=== PATIENT | male | born 1990 | race American Indian/Alaskan Native ===

== ENCOUNTER 2021-11-10 10:45 | Emergency (ER) | payer MEDICARE ==
--- NOTE | 2021-11-10 12:45 | Emergency Department Report ---
ED General Adult HPI - General Chief complaint: Dyspnea/Respdistress Stated complaint: FEELING WARM/HEAD PAIN/SCAR Time Seen by Provider: 11/10/21 12:30 Source: patient Mode of arrival: Ambulatory Limitations: No Limitations - History of Present Illness Initial comments: 30-year-old morbid obese -[place] male presents to the emergency room complaining of a headache for 3 days that comes and goes. Patient states that today he felt warm. He states he took Tylenol 2 days ago which helped. He has a history of schizophrenia bipolar and diabetes. He reports that he has little pain today. He states that he has no nausea but reports he vomited once but originally said he vomited none. He denies any fever no chills. He currently stays in a residential. Denies any other complaints. Onset/Timin -: hour(s) Location: head Severity scale (0 -10): 2 Quality: aching Consistency: intermittent, now resolved Improves with: medication Worsens with: none (Tylenol) Associated Symptoms: headaches, nausea/vomiting (Vomited once). denies: confusion, chest pain, cough, diaphoresis, fever/chills, shortness of breath, syncope, weakness, other Treatments Prior to Arrival: none - Related Data Home Medications Medication Instructions Recorded Confirmed Last Taken clonazePAM [Klonopin] 0.5 mg PO BID 12/31/17 12/31/17 Unknown Metoprolol 25 mg PO HS 05/22/18 05/22/18 Unknown cloZAPine 100 mg PO QPM 05/22/18 05/22/18 Unknown Previous Rx's Medication Instructions Recorded Last Taken Type Ibuprofen [Motrin] 600 mg PO Q8H PRN #14 tablet 07/18/18 Unknown Rx Allergies Allergy/AdvReac Type Severity Reaction Status Date / Time No Known Allergies Allergy Unverified 03/27/21 13:45 ED Review of Systems ROS: Stated complaint: FEELING WARM/HEAD PAIN/SCAR Other details as noted in HPI Comment: All other systems reviewed and negative ED Past Medical Hx - Past Medical History Hx Hypertension: Yes Hx Diabetes: Yes Hx Psychiatric Treatment: Yes (schizophrenia, bipolar) Additional medical history: Morbid Obesity - Social History Smoking Status: Never Smoker Substance Use Type: None - Medications Home Medications: Home Medications Medication Instructions Recorded Confirmed Last Taken Type clonazePAM [Klonopin] 0.5 mg PO BID 0412/31/17 Unknown History Metoprolol 25 mg PO HS 05/22/18 05/22/18 Unknown History cloZAPine 100 mg PO QPM 05/22/18 05/22/18 Unknown History Ibuprofen [Motrin] 600 mg PO Q8H PRN #14 tablet 07/18/18 Unknown Rx ED Physical Exam - General Limitations: No Limitations General appearance: alert, in no apparent distress, obese (Morbid obese) - Head Head exam: Present: atraumatic, normocephalic - Eye Eye exam: Present: normal appearance - ENT ENT exam: Present: mucous membranes moist, normal external ear exam - Neck Neck exam: Present: normal inspection, full ROM - Respiratory Respiratory exam: Present: normal lung sounds bilaterally. Absent: respiratory distress, accessory muscle use - Cardiovascular Cardiovascular Exam: Present: regular rate, normal heart sounds. Absent: systolic murmur, diastolic murmur - GI/Abdominal GI/Abdominal exam: Present: soft. Absent: distended, tenderness, guarding - Extremities Exam Extremities exam: Present: normal inspection - Back Exam Back exam: Present: normal inspection - Neurological Exam Neurological exam: Present: alert, oriented X3, normal gait - Expanded Neurological Exam Expanded Cranial nerves: EOM's Intact: Normal, Gag Reflex: Normal, Tongue Deviation: Normal, Nystagmus: Normal, Facial Sensation: Normal, Facial Palsy with Forehead Movement: Normal, Facial Palsy without Forehead Movement: Normal Cerebellar function: Finger to Nose: Normal, Heel to Vázquez: Normal, Romberg: Normal Upper motor neuron: Porfirio Neglect: Normal, Pronator Drift: Normal, Babinski Sign: Normal, Sensory Extinction: Normal Sensory exam: Upper Extremity Light Touch: Normal, Upper Extremity Pin Prick: Normal, Upper Extremity Temperature: Normal, UE 2 Point Discrimination: Normal, Lower Extremity Light Touch: Normal, Lower Extremity Pin Prick: Normal, Lower Extremity Temperature: Normal, LE 2 Point Discrimination: Normal - Psychiatric Psychiatric exam: Present: normal mood, flat affect - Skin Skin exam: Present: warm, dry, intact, normal color. Absent: rash ED Course Vital Signs 11/10/21 12:07 Temperature 98.7 F Pulse Rate 112 H Respiratory 18 Rate Blood Pressure 145/95 [Right] O2 Sat by Pulse 98 Oximetry ED Medical Decision Making - Medical Decision Making 30-year-old morbid obese -[place] male presents to the emergency room complaining of a headache for 3 days that comes and goes. Patient states that today he felt warm. He states he took Tylenol 2 days ago which helped. He has a history of schizophrenia bipolar and diabetes. He reports that he has little pain today. He states that he has no nausea but reports he vomited once but o riginally said he vomited none. He denies any fever no chills. He currently stays in a residential. Denies any other complaints. The patient presents to the emergency room department with a headache. The patient is now resting comfortably and feels better, is alert talkative, interactive and in no distress. The patient appears well and is able to tolerate p.o. fluids. The repeat examination is unremarkable and benign. The patient is neurologically intact, has a normal mental status, and is ambulatory in the emergency room. The history, exam diagnostic testing (if any) and the patient's current condition do not suggest meningitis, stroke, sepsis, subarachnoid hemorrhage and, intracranial bleeding, encephalitis, temporal arteritis or any other significant pathology to warrant further testing, continued ED treatment, admission, neurological consultation or other specific evaluations at this point. The vital signs have been stable. The patient's condition is stable and appropriate for discharge. The patient will pursue further outpatient evaluation with the primary care provider or other designated or consulting physician as indicated in the discharge instructions. Recommend Tylenol ibuprofen for headaches. Be sure to increase your fluid intake. Follow-up with your primary care provider. Critical care attestation.: If time is entered above; I have spent that time in minutes in the direct care of this critically ill patient, excluding procedure time. ED Disposition Clinical Impression: Headache, Severely overweight Disposition: 01 HOME / SELF CARE / HOMELESS Is pt being admited?: No Does the pt Need Aspirin: No Condition: Stable Instructions: General Headache Without Cause, [id number] Additional Instructions: Recommend to take Tylenol ibuprofen as needed for pain management. Be sure to increase your water and fluid intake. Follow-up with your primary care provider. Referrals: Your, primary care provider [Other] - 3-5 Days Time of Disposition: 12:45
[2021-11-10 12:54] VITALS: BP 145/90
== END 2021-11-10 13:30 | disposition home or self-care (01) ==
LOC: ED 10:45
DX: R51.9 Headache, unspecified (principal); E66.3 Overweight; I10 Essential (primary) hypertension; E11.9 Type 2 diabetes mellitus without complications
CPT/HCPCS: 99282

== ENCOUNTER 2022-02-12 19:34 | Emergency (ER) | payer MEDICARE ==
[2022-02-12 20:48] LABS: Hematocrit 38.5 % (35.5-45.6); Hemoglobin 12.3 gm/dl (11.8-15.2); Mean Corpuscular HGB Conc 32 % (32-34); Mean Corpuscular Volume 87 fl (84-94); Platelet Count 226 K/mm3 (140-440); Red Blood Count 4.43 M/mm3 (3.65-5.03); Red Cell Distribution Width 15.6 % (13.2-15.2)
[2022-02-12 20:50] LABS: Alanine Aminotransferase 16 units/L (7-56); Albumin 4.2 g/dL (3.9-5); BUN/Creatinine Ratio 13; Blood Urea Nitrogen 10 mg/dL (9-20); Calcium 9.4 mg/dL (8.4-10.2); Hemolysis Index 8
[2022-02-12 21:55] LABS: Basophils % (Manual) 0 % (0.0-1.8); Eosinophils % (Manual) 0 % (0.0-4.3); Total Cells Counted 100
[2022-02-12 21:56] LABS: Rouleaux 1+
[2022-02-12 21:57] LABS: Hypochromasia Few; Platelet Estimate Consistent w Auto
--- NOTE | 2022-02-12 23:37 | Emergency Department Report ---
ED Psych HPI - General Chief Complaint: Psych Stated Complaint: SI Time Seen by Provider: 02/12/22 19:54 Source: EMS Mode of arrival: Ambulatory - History of Present Illness Initial Comments: Patient is a 31-year-old male with history of schizophrenia presenting to ED with complaint of SI and HI along with auditory hallucinations telling him to hurt people. - Related Data Home Medications Medication Instructions Recorded Confirmed Last Taken clonazePAM [Klonopin] 0.5 mg PO BID 12/31/17 12/31/17 Unknown Metoprolol 25 mg PO HS 05/22/18 05/22/18 Unknown cloZAPine 100 mg PO QPM 05/22/18 05/22/18 Unknown Previous Rx's Medication Instructions Recorded Last Taken Type Ibuprofen [Motrin] 600 mg PO Q8H PRN #14 tablet 07/18/18 Unknown Rx Allergies Allergy/AdvReac Type Severity Reaction Status Date / Time No Known Allergies Allergy Unverified 03/27/21 13:45 ED Review of Systems ROS: Stated complaint: SI Other details as noted in HPI Comment: All other systems reviewed and negative Constitutional: no symptoms reported Respiratory: denies: cough, shortness of breath, wheezing Cardiovascular: denies: chest pain, palpitations Gastrointestinal: denies: abdominal pain, nausea, diarrhea Genitourinary: denies: urgency, dysuria Psychiatric: auditory hallucinations, homicidal thoughts, suicidal thoughts ED Past Medical Hx - Past Medical History Hx Hypertension: Yes Hx Diabetes: Yes Hx Psychiatric Treatment: Yes (schizophrenia, bipolar) Additional medical history: Morbid Obesity - Surgical History Past Surgical History?: No - Social History Smoking Status: Unknown if ever smoked - Medications Home Medications: Home Medications Medication Instructions Recorded Confirmed Last Taken Type clonazePAM [Klonopin] 0.5 mg PO BID 12/31/17 12/31/17 Unknown History Metoprolol 25 mg PO HS 05/22/18 05/22/18 Unknown History cloZAPine 100 mg PO QPM 05/22/18 05/22/18 Unknown History Ibuprofen [Motrin] 600 mg PO Q8H PRN #14 tablet 07/18/18 Unknown Rx ED Physical Exam - General Limitations: No Limitations General appearance: alert, in no apparent distress - Head Head exam: Present: atraumatic, normocephalic - Respiratory Respiratory exam: Present: normal lung sounds bilaterally, respiratory distress - Cardiovascular Cardiovascular Exam: Present: normal rhythm, tachycardia, normal heart sounds - GI/Abdominal GI/Abdominal exam: Present: soft. Absent: distended, tenderness - Rectal Rectal exam: Present: deferred - Neurological Exam Neurological exam: Present: alert, oriented X3 - Psychiatric Psychiatric exam: Present: normal affect, normal mood, homicidal ideation. Absent: suicidal ideation - Skin Skin exam: Present: warm, dry, intact, normal color ED Course Vital Signs 02/12/22 02/13/22 02/13/22 19:38 08:20 08:28 Temperature 97.1 F L 98.2 F Pulse Rate 119 H 93 H Respiratory 18 18 Rate Blood Pressure 155/98 Blood Pressure 173/96 [Right] O2 Sat by Pulse 97 96 97 Oximetry 02/13/22 02/13/22 02/13/22 14:19 16:20 16:21 Temperature 98.7 F 98.2 F Pulse Rate 94 H 99 H 99 H Respiratory Rate Blood Pressure Blood Pressure 157/93 153/90 153/90 [Right] O2 Sat by Pulse Oximetry ED Medical Decision Making - Lab Data Result diagrams: 02/12/22 20:12 02/12/22 20:12 - Medical Decision Making Labs grossly unremarkable. Patient awaiting mental health assessment. 1013 on file. Likely inpatient treatment. Critical care attestation.: If time is entered above; I have spent that time in minutes in the direct care of this critically ill patient, excluding procedure time. ED Disposition Clinical Impression: Suicidal ideation, Homicidal ideation, Auditory hallucinations Disposition: [address] [place] [address] Is pt being admited?: No Condition: Stable Referrals: FAUSTINO ALFARO MD [Primary Care Provider] - 3-5 Days
--- NOTE | 2022-02-13 10:40 | Consultation ---
History of Present Illness - Reason for Consult Consult date: 02/13/22 Reason for consult: Hallucinations - History of Present Psychiatric Illness The patient is a 31 year old male with history of schizophrenia and bipolar who presents to the ED with hallucinations. The patient was seen today, he is calm but responding to internal stimuli. He reports having auditory hallucination x2 weeks " loud voices, saying to harm myself." The patient is requesting to be transferred to [facility]. He reports seeing a psychiatrist monthly and his current medications are Zoloft and Depakote, he is unable to recall dosages. The patient reports being compliant with psychotropic meds however, states " medication is not working." PAST PSYCHIATRIC HISTORY: Diagnoses:Schizophrenia, Bipolar Suicide attempts or Self-harm behavior:Denies Prior psychiatric hospitalizations: Yes Substance Abuse history: Denies Previous psychiatric medications tried:Zoloft, Clozaril, Depakote Outpatient treatment:Unknown PAST MEDICAL HISTORY: None reported or document Family Psychiatric History: None reported or documented SOCIAL HISTORY Marital Status: Single Living Arrangements: Lives with care provider Employment Status: Disability Access to guns/weapons: Denies Education:12th grade History of Abuse: Denies Legal History: Denies REVIEW OF SYSTEMS Constitutional: Negative for weight loss ENT: Negative for stridor Respiratory: Negative for cough or hemoptysis All other systems reviewed and are negative MENTAL STATUS EXAMINATION General Appearance and Behavior: Age appropriate, wearing appropriate clothes, cooperative, polite with questioning, good eye contact, calm, polite Cooperation: cooperative Psychomotor Behavior: Psychomotor normal Mood: calm Affect and affective range: Congruent with stated mood Thought Process:Goal directed Thought Content:Hallucinations Speech: Normal volume, Regular rate and rhythm Suicidal Ideation: Denies Homicidal Ideation: Denies Hallucination: Auditory Delusions: None elicited Impulse Control: limited Insight and Judgment: Limited Memory: intact Attention: attentive Orientation: Alert and oriented Diagnoses: Schizophrenia Treatment Plan 1013 Continue home meds Abilify 15mg po daily Depakote 250mg po BID Zoloft 25mg po daily Trazodone 50mg po QHS PSYCHOTHERAPY: Supportive psychotherapy provided MEDICAL: Per primary team DELIRIUM PRECAUTIONS: Please re-orient patient frequently, keep lights on during the day, and minimize benzodiazepines and opiates as these medications could worsen patient's confusion. [employer]OR: Per medical team DISPOSITION: Recommend acute psychiatric inpatient treatment. Will follow. Thank you for the consult. Case staffed with Dr. Ruiz Medications and Allergies Medications and Allergies Allergies Allergy/AdvReac Type Severity Reaction Status Date / Time No Known Allergies Allergy Unverified 03/27/21 13:45 Home Medications Medication Instructions Recorded Confirmed Last Taken Type clonazePAM [Klonopin] 0.5 mg PO BID 12/31/17 12/31/17 Unknown History Metoprolol 25 mg PO HS 05/22/18 05/22/18 Unknown History cloZAPine 100 mg PO QPM 05/22/18 05/22/18 Unknown History Ibuprofen [Motrin] 600 mg PO Q8H PRN #14 tablet 07/18/18 Unknown Rx Mental Status Exam - Vital signs Last Vital Signs Temp 98.2 F 02/13/22 08:28 Pulse 93 H 02/13/22 08:28 Resp 18 02/13/22 08:28 BP 173/96 02/13/22 08:28 Pulse Ox 97 02/13/22 08:28 Results Result Diagrams: 02/12/22 20:12 02/12/22 20:12 Abnormal lab results 02/12/22 02/12/22 02/12/22 Range/Units 20:12 20:12 20:12 RDW 15.6 H (13.2-15.2) % Nucleated RBC % 1.0 H (0.0-0.9) % Glucose (75-100) mg/dL Salicylates < 0.3 L (2.8-20.0) mg/dL Acetaminophen 5.0 L (10.0-30.0) ug/mL 02/12/22 Range/Units 20:12 RDW (13.2-15.2) % Nucleated RBC % (0.0-0.9) % Glucose 106 H (75-100) mg/dL Salicylates (2.8-20.0) mg/dL Acetaminophen (10.0-30.0) ug/mL All other labs normal.
[2022-02-13] MEDS ORDERED: ARIPiprazole 15 MG TAB PO SCH (11:00)
[2022-02-13] MEDS ORDERED: DIVALPROEX DR 250 MG TAB PO SCH (11:00)
[2022-02-13] MEDS ORDERED: SERTRALINE 25 MG TAB PO SCH (11:00)
[2022-02-13] MEDS ORDERED: LORazepam 2 MG/ML VIAL IM PRN (11:18)
[2022-02-13] MEDS ORDERED: HALOPERIDOL LACTATE 5 MG/1 ML INJ IM PRN (11:18)
--- NOTE | 2022-02-13 11:44 | Event Note ---
Date: 02/13/22 vss , no distress , no events overnight awaiting assessment , medically cleared
[2022-02-13 11:55] LABS: Amphetamine Screen,Urine Negative; Benzodiazepines Screen,Urine Negative; Cannabinoid Screen,Urine Negative; Cocaine Screen,Urine Negative; Methadone Screen,Urine Negative; Opiate Screen,Urine Negative
[2022-02-13 12:01] LABS: Amorphous Crystals,Urine 2+; Bilirubin,Urine NEG (Negative); Blood,Urine NEG (Negative); Color,Urine Yellow (Yellow); Mucus,Urine FEW /HPF; Protein,Urine <15 mg/dL mg/dL (Negative)
[2022-02-13 16:21] VITALS: BP 153/90
[2022-02-13] MEDS ORDERED: traZODone 50 MG TAB PO SCH (22:00)
== END 2022-02-13 16:22 ==
LOC: ED 19:34
DX: R45.851 Suicidal ideations (principal); F20.9 Schizophrenia, unspecified; F31.9 Bipolar disorder, unspecified; Z20.822 Contact with and (suspected) exposure to COVID-19; I10 Essential (primary) hypertension; E11.9 Type 2 diabetes mellitus without complications; E66.01 Morbid (severe) obesity due to excess calories
CPT/HCPCS: 36415; 80053; 80307; 81001; 84443; 84703; 85007; 85025; 96372; 99285; J2060; U0003; 80320; G0480